=== PATIENT | female | born 1930 | race Caucasian/White ===

== ENCOUNTER 2017-03-06 14:02 | Day surgery (SDC) | payer MEDICARE, BC ==
[2017-03-06] MEDS ORDERED: BUPIVACAINE HCL 0.25% MPF 10 ML SOL INFIL ONE (14:53)
[2017-03-06] MEDS: DEXAMETHASONE SOD PHOS PF 10 MG/ML SOL IJ ONE ×2 (15:06→15:10)
[2017-03-06 16:32] VITALS: TEMP 98.3
[2017-03-06 16:34] VITALS: BP 173/95; PULSE 74; RESP 20; O2SAT 96
== END 2017-03-06 16:25 | disposition home or self-care (01) | DRG 552 ==
LOC: SURG 14:02
PROVIDERS: ATTEND Nurse Anesthetist, Certified Registered
DX: M54.5 Low back pain (principal); M54.16 Radiculopathy, lumbar region
CPT/HCPCS: J1100